=== PATIENT | female | born 1965 | race Caucasian/White ===

== ENCOUNTER → 2016-11-02 | Outpatient (CLI) | payer BC ==
[~2016-11-02] MED LIST: ALEVE220 M1 PO; ASPIRIN EC81 MG PO; CAFFEINE200 MG PO; CALCIUM CARBON600 MG PO; CYMBALTA60 MG PO; LASIX20 MG PO; LISINOPRIL-HCT1 EAC2 PO; SINEMET 25-1001 EACH PO; SYMMETREL 100M100 MG PO; VITAMIN D-40400 UNIT PO; VYVANSE60 MG PO
--- NOTE | ~2016-11-02 | ESTC ---
Cardiac Perfusion Imaging Demographics Patient Name SAVI Rice Gender Female Patient Number [id number] Race Visit Number [id number] Ethnicity [employer] ID Room Number Accession Number [id number] Height Date of 1965 Weight Age 51 year(s) BSA Referring Physician Juju Mendez BMI Interpreting [place] Date of study 11/02/2016 Physician Supervising MD/JUAN PABLOP [place] NM Technologist Chinedu Terry MD Ordering Physician Juju Mendez Stress Tom Aleman RVT, supply technician RDCS Stress ECG Reading [place] Nurse Propp Katy WALLACE Physician MD Procedure Procedure Type: Nuclear Stress Test:Cardiolite Stress Test Procedure Start time: 11/02/2016 08:45 Risk Factors The patient risk factors include:obesity and hypertension. Conclusions Summary Perfusion Images: The overall quality of the study is fair, due to gastrointestinal tracer uptake. Left ventricular cavity is noted to be normal on the stress and normal on the rest images. There is no evidence of abnormal lung activity. The right ventricle is not visualized an cannot be assessed. Impression ECG portion of lexiscan stress test is clinically negative for ischemia by diagnostic criteria. Myocardial perfusion imaging is not suggestive of any significant perfusion abnormalities suggestive of ischemia or infarct. (The perfusion in apex and lateral wall is better during post stress imaging). Overall left ventricular systolic function was normal without regional wall motion abnormalities. Calculated LVEF is 66% and TID ratio is 1.25. There are no previous studies for comparison. Stress Protocols Resting ECG NSR Pre-stress physical exam: s1 s2, rrr Predicted HR: 168 bpm ECG Findings No ECG changes suggestive of ischemia. Arrhythmias No rhythm abnormality. Symptoms Shortness of breath. Stress Interpretation Appropriate hemodynamic response to Lexiscan. No significant ST-T wave changes with Lexiscan. ECG portion is negative for ischemia by diagnostic criteria. Imaging Results High risk findings Summed scores - LV dilatation (TID) : 1.25 - Summed stress score: 10 - Summed rest score: 6 - Summed difference score: 4 Stress ejection Ejection fraction:65 % EDV :95 ml ESV :33 ml Stroke volume :62 ml LV mass :136 gr Imaging Protocols Rest Stress Isotope:Tc99m Sestamibi IV Isotope: Tc99m Sestamibi IV Isotope dose:15.1 mCi Isotope dose:45.6 mCi Date:11/02/2016 07:31 Date:11/02/2016 09:08 Technique: SPECT Technique: Gated Supine SPECT Supine Scan Time:45-60 minutes post Scan Time:45-60 minutes post injection injection Procedure Medications - Regadenoson (Lexiscan) 0.4 mg IV over 10-15 sec. I.V. 0.4 mg. Medical History Admission Data Admission date: 11/02/2016 Admission Time: 07:15 Hospital Status: Outpatient. Signatures dtt: ABIMAEL GARNICA dtd: 11/02/16 0845 Physician Self Edit
== END | disposition disaster alternative care site (69) ==
LOC: GRAD 07:15
DX: Z01.818 Encounter for other preprocedural examination (principal); E66.01 Morbid (severe) obesity due to excess calories; I10 Essential (primary) hypertension; R06.02 Shortness of breath
CPT/HCPCS: A9500; J2785